=== PATIENT | female | born 1995 | race Hispanic/Latino ===

== ENCOUNTER 2018-10-26 16:52 | Outpatient (CLI) | payer OTHER ==
[2018-10-26 17:11] LABS: PLATELET COUNT 255 K/uL (152-353)
[2018-10-26 17:18] LABS: POTASSIUM 3.7 mmol/L (3.6-5.2)
== END 2018-10-26 23:26 | disposition home or self-care (01) ==
LOC: LABW 16:52
PROVIDERS: Nurse Practitioner Family
DX: R10.13 Epigastric pain (principal)
CPT/HCPCS: 36415; 80053; 82150; 83690; 85027

== ENCOUNTER 2018-10-26 21:00 | Emergency (ER) | payer OTHER ==
[~2018-10-26] VITALS: Ht 172.7 cm; Wt 93.0 kg
[2018-10-26 23:20] VITALS: BP 120/72; TEMP 98.1
== END 2018-10-26 23:20 | disposition home or self-care (01) ==
LOC: ED 21:00
DX: K80.80 Other cholelithiasis without obstruction (principal); R10.11 Right upper quadrant pain
CPT/HCPCS: 96372; 99283; J0696; J1885

== ENCOUNTER 2018-11-18 07:30 | Day surgery (SDC) | payer OTHER ==
[~2018-11-18] VITALS: Ht 157.5 cm; Wt 68.0 kg
[2018-11-18 09:12] LABS: PLATELET COUNT 297 K/uL (152-353)
[2018-11-18 09:19] LABS: POTASSIUM 3.8 mmol/L (3.6-5.2)
== END 2018-11-18 15:40 | disposition home or self-care (01) ==
LOC: OR 07:30
PROVIDERS: Student in an Organized Health Care Education/Training Program
PROC: 0FT44ZZ Resection of Gallbladder, Percutaneous Endoscopic Approach (ICD-10-PCS; principal; 2018-11-18)
DX: K80.10 Calculus of gallbladder with chronic cholecystitis without obstruction (principal)
CPT/HCPCS: 80048; 81025; 82150; 83690; 84075; 84450; 84460; 85027; J0132; J0330; J0690; J1100; J1170; J1200; J1885; J2001; J2250; J2405; J2704; J2710; J3010; J3490

== ENCOUNTER 2023-01-07 18:39 | Emergency (ER) | payer OTHER ==
[~2023-01-07] VITALS: Ht 157.5 cm; Wt 108.9 kg
[2023-01-07 18:42] VITALS: BP 110/75; TEMP 98
== END 2023-01-07 19:49 | disposition home or self-care (01) ==
LOC: ED 18:39
DX: L03.011 Cellulitis of right finger (principal)
CPT/HCPCS: 99281